=== PATIENT | male | born 1955 | race Hispanic/Latino ===

== ENCOUNTER 2021-10-16 20:40 | Emergency (ER) | payer BC ==
[~2021-10-16] VITALS: Ht 177.8 cm; Wt 94.3 kg
[2021-10-17] MEDS ORDERED: PANTOPRAZOLE 40 MG/VIAL ONE (00:16)
[2021-10-17] MEDS ORDERED: ONDANSETRON 4MG INJ ONE (00:16)
[2021-10-17] MEDS ORDERED: METOCLOPRAMIDE 10 MG/2 ML VIAL ONE (00:16)
[2021-10-17] MEDS ORDERED: FAMOTIDINE 20MG VIAL IV ONE ×2 (00:16→00:30)
[2021-10-17] MEDS ORDERED: ONDANSETRON 4MG INJ IVP ONE (00:30)
[2021-10-17] MEDS ORDERED: METOCLOPRAMIDE 10 MG/2 ML VIAL IVP ONE (00:30)
[2021-10-17] MEDS ORDERED: 0.9%NACL 1000ML 1,000 ML IV ONE (00:30)
[2021-10-17] MEDS ORDERED: PANTOPRAZOLE 40 MG/VIAL IVP ONE (00:30)
[2021-10-17 01:03] LABS: BASOPHILS % (AUTO) 0.7 % (0.0-5.0); EOSINOPHILS % (AUTO) 1.3 % (0.0-8.0); HEMATOCRIT 45.8 % (42-54); LYMPHOCYTES % (AUTO) 23.3 % (21.0-51.0); MEAN CORPUSCULAR HEMOGLOBIN 26.5 pg (27.0-33.0); MEAN CORPUSCULAR HGB CONC 32.3 g/dL (32.0-36.0); MEAN CORPUSCULAR VOLUME 81.9 fL (79-99); MONOCYTES % (AUTO) 8.1 % (3.0-13.0); NEUTROPHILS % (AUTO) 66.1 % (40.0-77.0); PLATELET COUNT (AUTO) 205 K/uL (130-400); RED BLOOD CELL COUNT(AUTO) 5.59 MIL/uL (4.50-6.20); RED CELL DISTRIBUTION WIDTH 14.4 % (11.0-15.5); WHITE BLOOD COUNT (AUTO) 8.7 K/uL (4.8-10.8)
[2021-10-17 01:18] LABS: POTASSIUM 3.6 mmol/L (3.5-5.1)
[2021-10-17 01:23] LABS: ALBUMIN 3.8 g/dL (3.5-5.0); BILIRUBIN,TOTAL 1.9 mg/dL (0.2-1.0)
[2021-10-17] MEDS ORDERED: CHLORPROMAZINE HCL 25 MG/ML 1ML AMP IV ONE (01:30)
[2021-10-17] MEDS ORDERED: CHLORPROMAZINE HCL 25 MG/ML 1ML AMP ONE (01:35)
[2021-10-17] MEDS ORDERED: 0.9%NACL 100ML 100 ML IV ONE (02:00)
[2021-10-17] MEDS ORDERED: METO-296 PO (02:21)
[2021-10-17] MEDS ORDERED: CHLO50 PO (02:21)
[2021-10-17] MEDS ORDERED: ONDA4TAB10 PO (02:21)
[2021-10-17] MEDS ORDERED: PANT40TA PO (02:21)
[2021-10-17 02:23] VITALS: BP 125/78
== END 2021-10-17 02:28 | disposition home or self-care (01) ==
LOC: EDH 20:40
DX: K29.70 Gastritis, unspecified, without bleeding (principal); E86.9 Volume depletion, unspecified; R06.6 Hiccough; K21.9 Gastro-esophageal reflux disease without esophagitis
CPT/HCPCS: 36415; 71045; 80053; 83690; 84484; 85025; 96365; 96375; 99284; C9113; J2405; J2765; J3230; J3490; J7030; 93005

== ENCOUNTER → 2024-11-28 | Outpatient (CLI) | payer OTHER ==
[~2024-11-28] MED LIST: CHLO50 PO; METO-296 PO; ONDA-243 PO; PANT40TA PO
--- NOTE | 2024-11-28 11:28 | HMCIMG ---
CT calcium scoring Clinical Information: [facility] SCREENING Comparison: None CT Dose Index (CTDI): 13.30 mGy Dose Length Product (DLP): 186.18 total mGy-cm Findings: Calcium score 44.9. Mild calcification. The CT scan is not a complete chest CT. Covered portion is reviewed for incidental findings. No incidental findings seen. IMPRESSION: Calcium score as above. Calcium score reference stable: 0: No identifiable calcification 1- 10: Minimal identifiable calcification 11-100: Mild calcification 101- 400: Moderate calcification 401 and above: Significant calcification Automated exposure control and adequate statistical iterative reconstructions were utilized as dose reduction techniques.
== END | disposition home or self-care (01) ==
LOC: RAH 10:50
PROVIDERS: ATTEND Internal Medicine Cardiovascular Disease
DX: Z13.6 Encounter for screening for cardiovascular disorders (principal)
CPT/HCPCS: 75571